=== PATIENT | male | born 1970 | race Two or more races ===

== ENCOUNTER 2021-01-25 19:32 | Emergency (ER) | payer OTHER, SELFPAY ==
[2021-01-25 19:49] VITALS: PULSE 88; RESP 18; TEMP 36.4; O2SAT 96; BMI 40.2
[2021-01-25 20:20] LABS: Appearance Urine CLEAR; Color Urine YELLOW; Glucose Urine UA NEG (NEG); Leukocyte Esterase Urine TRACE (NEG); Nitrite Urine NEG (NEG); Specific Gravity - Urine >= 1.030 (1.005-1.025); UACC Culture Trigger YES; Urine Blood NEG (NEG); Urine Ketones NEG (NEG); Urine Protein NEG (NEG-TRACE)
[2021-01-25 20:29] LABS: RBC Urine 0 /HPF (0); UACC CULT YES
--- NOTE | 2021-01-25 21:33 | ED.MALEGU ---
HPI - Male Genitourinary General Chief complaint: Urogenital-Male Stated complaint: diff urinating, inflamation Time Seen by Provider: 01/25/21 21:03 Source: patient Mode of arrival: ambulatory History of Present Illness HPI Narrative: 50-year-old male with no significant past medical history presenting to the ED complaining of swollen painful foreskin x1 month. Reports difficulty retracting foreskin. Denies dysuria, difficulty urinating/inability to urinate, penile discharge, scrotal pain, hematuria, flank pain, abdominal pain, nausea/vomiting, concern for STI. Related Data Previous Rx's Medication Instructions Recorded clotrimazole 1 % topical cream 1 appl TOPICAL BID 7 Days #45 g 01/25/21 Allergies Allergy/AdvReac Type Severity Reaction Status Date / Time No Known Allergies Allergy Verified 01/25/21 20:56 [No Known Allergies*] Review of Systems Review of Systems: Constitutional: No Fever, No Chills, No Fatigue, No Malaise ENT/Mouth: No Ear Pain, No Nasal Congestion, No Sinus Pain, No Hoarseness, No sore throat Eyes: No Eye Pain, No Swelling, No Redness Cardiovascular: No Chest Pain, No SOB Respiratory: No Cough, No Sputum, No Dyspnea Gastrointestinal: No Nausea, No Vomiting, No Diarrhea, No Constipation, No Abdominal pain Genitourinary: No irregular bleeding, No Dysuria, No Urinary Frequency, No Hematuria,No Urinary Incontinence, No Urgency, No Flank Pain, No Urinary Flow Changes, No Hesitancy, no testicular pain, no penile discharge Musculoskeletal: No joint pain, No Myalgias, No Joint Swelling Skin: + swollen foreskin, No rash Neuro: No Weakness, No Numbness, No Paresthesias, No Loss of Consciousness, No Dizziness, No Headache Yes all other systems are reviewed and are negative [facility] Past Medical History Attestation statement: The following information was validated with the patient. Medical History (Updated 01/26/21 @ 00:02 by Dulce Clayton) No known health problems Social History Social History Advance Directives: No Advance Directives Information Provided: Yes Physical Exam Vital Signs: Vital Signs: Last Vital Signs Temp 97.5 F 01/25/21 19:49 Pulse 88 01/25/21 19:49 Resp 18 01/25/21 19:49 Pulse Ox 96 01/25/21 19:49 Body Mass Index 40.2 Const: General: cooperative and healthy appearing Orientation/consciousness: patient oriented x3 Limitations: no limitations HENMT: Head: Yes normal to inspection Ears: hearing grossly normal bilaterally General nose exam: Normal external nose present Face and sinus: Yes normal facial exam Eyes: General: appearance normal, both eyes and all related structures EOM: EOMs intact bilaterally Neck: Neck: Yes normal visual inspection and Yes no meningeal signs Resp: Effort & Inspection: normal respiratory effort and no respiratory distress Cardio: Rate: regular rate GI: Inspection: Yes normal to inspection Palpation (GI): Soft to palpation, nontender, no guarding and not rigid : Other: + balanitis, swollen foreskin with maceration some clear drainage General: Yes no CVA tenderness Penis: uncircumcised and non retractile foreskin Scrotum: scrotum normal Testes: Testes normal Back/Spine/Pelvis: Back: no CVA tenderness Skin: Rashes: no rashes Wounds: no wounds Neuro: General: patient oriented x3 and no meningeal signs Gait exam (Neuro): Normal gait present Extrem: General: Yes normal to inspection MDM - Male Genitourinary MDM Narrative Medical decision making narrative: 50-year-old male with no significant past medical history presenting to the ED complaining of swollen painful foreskin x1 month. On exam VSS, NAD, abdomen soft/nontender, no CVAT, physical exam consistent with balanitis. Rule out UTI, will obtain STI testing. Plan: UA, CT NG Discussed with patient worrisome signs and symptoms and strict return precautions and needed close follow-up with Urology. Medical Records Attestation: I reviewed the patient's medical records. Lab Data Attestation: I reviewed the patient's lab results. Labs: Lab Results 01/25/21 Range/Units 20:08 Urine Color YELLOW Urine Appearance CLEAR Urine pH 6.0 (5.0-8.0) Ur Specific [place] >= 1.030 H (1.005-1.025) Urine Protein NEG (NEG-TRACE) MG/DL Urine Glucose (UA) NEG (NEG) MG/DL Urine Ketones NEG (NEG) MG/DL Urine Blood NEG (NEG) Urine Nitrite NEG (NEG) Ur Leukocyte Esterase TRACE H (NEG) Urine RBC 0 (0) /HPF Urine WBC 1-4 (0-4) /HPF Ur Squamous Epith Cells NONE /LPF Urine Bacteria NONE /LPF Discharge Plan Discharge Clinical Impression: Balanitis Patient Disposition: Home, Self-Care Instructions: Tory (ED) Additional Instructions: Use clotrimazole cream as prescribed twice daily for 1 week You need to follow-up with a urologist Propped hygiene is very important Retraction of the foreskin with thorough genital cleansing can be both preventive and therapeutic. Overuse of detergents, soaps, perfumes, condoms, and other chemicals (spermicidal agents, petroleum jelly), similar to poor hygiene, can also result in inflammation to the skin of the glans/foreskin. If area begins to worsen, your unable to urinate develop abdominal pain, nausea or vomiting return to the ED Prescriptions: New clotrimazole 1 % cream 1 appl topical BID 7 Days Qty: 45 RF: 0 Referrals: Reuben Jorgensen MD [Physician] - 2 days Interventions: ED Discharge Assessment Last Done: 01/25/21 22:08 Discharge Date/Time: 01/25/21 22:09
[2021-01-26 03:26] LABS: CT PCR NOT DETECTED (Not Detect.); NG PCR NOT DETECTED (Not Detect.)
== END 2021-01-25 22:09 | disposition home or self-care (01) ==
PROVIDERS: Physician Assistant; Emergency Provider Internal Medicine; PCP Internal Medicine
DX: N48.1 Balanitis (principal); R30.0 Dysuria; Z79.899 Other long term (current) drug therapy
CPT/HCPCS: 81001; 87086; 87491; 87591; 99283

== ENCOUNTER → 2021-02-23 11:14 | Outpatient (BNVA) | payer BC, SELFPAY | PROVIDERS: PCP Internal Medicine; Visit Provider Urology ==

== ENCOUNTER 2021-03-15 23:13 | Emergency (ER) | payer OTHER, SELFPAY ==
[2021-03-16 01:02] VITALS: BP 131/77; PULSE 87; RESP 20; TEMP 36.8; O2SAT 95; BMI 36.6
--- NOTE | 2021-03-16 02:30 | ED.GENADULT ---
HPI - General Adult General Chief complaint: Upper Respiratory Symptoms Stated complaint: covid ++ Time Seen by Provider: 03/16/21 02:01 Source: patient Mode of arrival: ambulatory Limitations: no limitations History of Present Illness HPI narrative: Patient comes to the emergency room complaining of feeling weak. Patient denies fever, no chills, diffuse body aches, no chest pain or shortness of breath. Patient states he is known to be COVID positive. Patient came in with the hopes that we can make him feel stronger. Patient states that he has good p.o. intake Related Data Previous Rx's Medication Instructions Recorded clotrimazole 1 % topical cream 1 appl TOPICAL BID 7 Days #45 g 01/25/21 Allergies Allergy/AdvReac Type Severity Reaction Status Date / Time No Known Allergies Allergy Verified 01/25/21 20:56 [No Known Allergies*] Review of Systems Review of Systems: Constitutional : No Weight loss, No Fever, No Chills, No Night Sweats, complaining of Fatigue, complaining of generalized malaise ENT/Mouth : No Hearing loss, No Ear Pain, No Nasal Congestion, No Sinus Pain, No Hoarseness, No sore throat, No Rhinorrhea, No Swallowing Difficulty Eyes: No Eye Pain, No Swelling, No Redness, No Foreign Body, No Discharge, No Vision Changes Cardiovascular : No Chest Pain, No SOB, No Dyspnea on Exertion, No Orthopnea, No Edema, No Palpitations Respiratory : No Cough, No Sputum, No Wheezing, No Smoke Exposure, No Dyspnea Gastrointestinal : No Nausea, No Vomiting, No Diarrhea, No Constipation, No abdominal Pain, No Hematochezia, No Melena Genitourinary : no irregular bleeding, No Dysuria, No Urinary Frequency, No Hematuria, No Urinary Incontinence, No Urgency, No Flank Pain, No Urinary Flow Changes, No Hesitancy Musculoskeletal : No joint pain, No Myalgias, No Joint Swelling Skin : No Skin Lesions, No rash Neuro : No Weakness, No Numbness, No Paresthesias, No Loss of Consciousness, No Dizziness, No Headache Psych : No Anxiety/Panic, No Depression, No SI/HI/AH/VH, No Social Issues, Heme/Lymph: No Bruising, No Bleeding,No Lymphadenopathy Endocrine : No Polyuria, No Polydipsia, No Temperature Intolerance [facility] Past Medical History Medical History No known health problems Social History Social History (Updated 02/23/21 @ 11:44 by Lukasz Bryant) Advance Directives: No Current occupational status: employed 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 Oriented X3. No acute distress. Eyes: Pupils equal, round and reactive to light. ENT: Pharynx normal. Neck: Normal inspection. Neck supple. No lymph nodes noted. No crepitus CVS: Normal heart rate and rhythm. Pulses normal. Normal S1 and S2 Respiratory: No respiratory distress. Breath sounds normal. No Wheezing. No rales Abdomen: Soft and nontender. No rigidity. No distention. good BS x4 Skin: Skin warm and dry. Normal skin color. Normal skin turgor. Extremities: No lower extremity edema. No Lacerations. No Rash Neuro: Oriented X 3. No motor deficit. No sensory deficit. Moving all extermities. No slurred speech. Course Course Course Narrative: I discussed with the patient that fatigue and weakness are known symptoms from any viral infection especially COVID-19. Patient has no respiratory issues at this time, patient states he has ibuprofen and Tylenol at home. Patient instructed to stay well hydrated. And to return to the emergency room if he has any respiratory distress. Discharge Plan Discharge Clinical Impression: Fatigue Patient Disposition: Home, Self-Care Instructions: Fatigue (ED) Additional Instructions: Please follow-up with your primary care physician tomorrow. If you have any worsening or new symptoms, please return to the emergency room or call 911 Prescriptions: No Action clotrimazole 1 % cream 1 appl topical BID 7 Days Qty: 45 RF: 0
--- NOTE | 2021-03-16 02:37 | PC.NURSE ---
pt has covid and reports feeling weak . provider in to assess pt. pt being discharge home with instructions.
[2021-03-16 02:50] VITALS: RESP 20; O2SAT 94
[2021-03-16 02:54] LABS: COVID-19 Test Positive (Negative)
== END 2021-03-16 02:51 | disposition home or self-care (01) ==
PROVIDERS: Emergency Provider Emergency Medicine
DX: U07.1 COVID-19 (principal); M79.10 Myalgia, unspecified site
CPT/HCPCS: 36415; 87635; 99283; 99284

== ENCOUNTER 2021-05-03 05:54 | Day surgery (SDC) | payer OTHER, SELFPAY ==
[2021-04-27 14:00] VITALS: BMI 40.1
--- NOTE | 2021-04-30 12:58 | P.CONAN_ITS ---
Documented by User: Clarita Perkins NP 04/30/21 12:58 HPI - Anesthesia Eval Consult details Narrative: 51yo M for Circumcision PMFSH Active Problems Active Problems: All Active Problems (Updated 03/17/21 @ 00:02 by Dulce Clayton) Phimosis (Acute) Balanitis (Acute) Past Medical History Medical History No known health problems Social History Social History (Updated 02/23/21 @ 11:44 by Lukasz Bryant) Patient Tobacco Use Status: Never used Tobacco Use of substances other than those prescribed or required for medical reasons: No Are you DNR?: No Advance Directives: No Advance Directives Information Provided: Yes Current occupational status: employed 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 Meds Allergies Allergy/AdvReac Type Severity Reaction Status Date / Time No Known Allergies Allergy Verified 01/25/21 20:56 [No Known Allergies*] Exam Exam Date and Time: April 30, 2021 1258 Height,Weight and Vital Signs: Height 5 ft 8 in Weight 119.748 kg Assessment and Plan Assessment Anesthesia Assessment: Chart Reviewed Documented by User: Sophia Goodman MD 05/03/21 07:05 PMFSH Past Medical History Medical History No known health problems Family History Family history of problems with anesthesia: No Surgical History History of Problems with Anesthesia: No Social History Social History (Updated 02/23/21 @ 11:44 by Lukasz Bryant) Patient Tobacco Use Status: Never used Tobacco Use of substances other than those prescribed or required for medical reasons: No Are you DNR?: No Advance Directives: No Advance Directives Information Provided: Yes Current occupational status: employed 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 Meds Allergies Allergy/AdvReac Type Severity Reaction Status Date / Time No Known Allergies Allergy Verified 01/25/21 20:56 [No Known Allergies*] Exam Airway Mallampati Class: II TM Dist: >3cm Neck ROM: Full Heart: rrrr Lungs: cta Assessment and Plan Assessment Anesthesia Assessment: Anesthesia Plan Discussed and Chart Reviewed Final Anesthetic Review Family History of Problems with Anesthesia: No History of Problems with Anesthesia: No NPO: Yes ASA Class: II Final Preanesthetic Review: No Changes in Pt Med Stat, Meds/Allgs Chart Reviewed and Consent Obtained/Reviewed Patient Risk: Intermediate Procedure Risk: Intermediate Anesthetic Plan Anesthetic Plan: GA Disposition: Standard PACU
[2021-05-03] VITALS (7 sets, daily range): BP systolic 96–124; BP diastolic 50–71; PULSE 68–77; RESP 16–17; TEMP 36.3–36.8; O2SAT 94–100
[2021-05-03] MEDS: Lactated Ringers 1,000 ML 100 ML IVCONT (06:45)
--- NOTE | 2021-05-03 07:25 | P.HPSUR_ITS ---
Pre-Procedural Eval Section A Date of Service: 05/03/21 The patient is an INPATIENT: No Changes since office visit: No Cold of Flu in the past 2 weeks, No New Medical Problems, No Changes in Medication and No Patient answered all questions The History & Physical has been completed within 30 days and I have reviewed it.: No Section B Chief Complaint: Phimosis Details of Present Illness: Phimosis Relevant Family History (Specify if Yes): No Relevant Social History: None Present Medications: see Short Stay Collaborative assessment Medical History: No relevant PMH History of Previous Operations: No relevant previous surgery Allergies: Allergies Allergy/AdvReac Type Severity Reaction Status Date / Time No Known Allergies Allergy Verified 01/25/21 20:56 [No Known Allergies*] Review of Systems Sugical H&P ROS: Negative: Constitution, Cardiovascular, Respiratory, Neurological, Psychiatric, Hem-Onc, Allergic/Immunologic, Gastrointestinal, Genitourinary, Musculoskeletal, Integumentary, Endocrine and Eyes/Ears/Nose/Throat Exam Surgical H&P Exam: Normal: HEENT, Normal: Heart, Normal: Lungs, Normal: Extre mities, Normal: Abdomen, Normal: Skin and Normal: Neurological Plan Diagnosis/Plan: Unchanged (Circumcision) I have reviewed the history and physical and performed a pertinent physical examination on my patient. No changes have occurred unless specified.
--- NOTE | 2021-05-03 08:25 | P.OP_ITS ---
Operative Note Operative Note Date of Service: 05/03/21 Narrative: PreOperative Diagnosis: Balanitis and phimosis Post Operative Diagnosis: Balanitis and phimosis Procedure: Circumcision Surgeon: Dr Reuben Jorgensen Anesthesia: General Indications for procedure: Recurring balanitis in inability to withdrawal foreskin of penile glans. Risks and benefits including bleeding, scarring, need for revision surgery been discussed. Procedure: After informed consent was verified the patient was brought to the operating room and placed in a supine position. Anesthesia was administered per protocol. The patient was prepped and draped sterile fashion. Safety pause time-out was performed. Antibiotics have been given. The penis was examined and proximal incision marked that lay just proximal to the resting position of the penile sulcus. This was followed around the circumference of the penis. A penile ring block was performed using 1% lidocai ne with no epinephrine. Approximately 8 cc. The proximal incision was developed with sharp blade running circumferentially around the penis. The skin was to give a 1 cm separation between the foreskin in the remaining penile shaft skin. The foreskin was withdrawn and the penile glans exposed. A a distal incision was made approximately 5 mm proximal to the penile sulcus. At the area of the frenulum care was taken to empty the penile frenulum intact. Using clamps the dorsal skin was elevated. Using Metzenbaum scissors the avascular plane was entered and proximal and distal incision were joined. The bridging skin was elevated and clamped. It was then divided using Bovie. The sleeve of tissue was then removed circumferentially around the penis using cautery in order to minimize bleeding. The shaft was then examined in any bleeding areas were controlled. More local anesthetic was injected into the plane beneath avascular plane to help with postprocedure pain management. The skin edges after they were appropriately examined low reapposed. A 3-0 chromic suture was placed at 12:00 o'clock and 06:00 o'clock positions. Interrupted 3-0 was then placed the 09:00 o'clock and 3 o'clock position. Each quadrant was then filled with 3 sutures using 4-0 chromic. At the completion of the procedure there was adequate hemostasis. The incision was washed and dried. Antibiotic cream was applied to the incision. A Edwardo wrap was applied followed by a Coban dressing. Xeroform gauze had been used to cover antibiotic ointment. He tolerated the procedure well and was extubated in the room and transferred in stable condition to the recovery area. Pathology: Foreskin Drains: none
== END 2021-05-03 09:49 | disposition home or self-care (01) ==
PROVIDERS: PCP Internal Medicine; Visit Provider Urology
PROC: (CPT 54161; principal; 2021-05-03 07:30)
DX: N47.1 Phimosis (principal); N48.1 Balanitis; R39.198 Other difficulties with micturition
CPT/HCPCS: 54161; 88304; J0690; J1100; J2250; J2405; J3010

== ENCOUNTER → 2021-06-03 11:49 | Outpatient (BNVA) | payer OTHER, SELFPAY | PROVIDERS: PCP Internal Medicine; Visit Provider Urology ==

== ENCOUNTER 2024-01-08 08:57 | Emergency (ER) | payer OTHER, SELFPAY ==
[2024-01-08 09:18] VITALS: BP 126/72; PULSE 59; RESP 20; TEMP 36.6; O2SAT 97; BMI 34.9
--- NOTE | 2024-01-08 10:38 | ED_ITS ---
HPI - Burn/Smoke Inhalation General Chief complaint: Burn/Smoke Inhalation Stated complaint: Burn R hand work inj Time Seen by Provider: 01/08/24 10:29 Source: RN notes reviewed and old records reviewed Mode of arrival: ambulatory Limitations: no limitations History of Present Illness HPI Narrative: 53 yo M with no significant past medical history presents to the ED c/o burn to left hand s/p grabbing a hot pipe at work this morning around 07:30 AM. Patient states the burn started to blister within an hour and burn cream was applied prior to arrival to the ED. Vaccinations are not up-to-date. denies injury to other area, numbness, tingling, weakness, drainage MD Complaint: burn Onset (ago): hour(s) Related Data Home Medications ?Medication ?Instructions ?Recorded ?Confirmed atorvastatin 40 mg tablet 40 mg PO DAILY 06/03/21 Previous Rx's ?Medication ?Instructions ?Recorded clotrimazole 1 % topical cream 1 appl topical BID 7 days #45 grams 01/25/21 sulfamethoxazole 400 1 tab PO DAILY #10 tabs 05/03/21 mg-trimethoprim 80 mg tablet (Bactrim) tramadol 50 mg tablet 50 mg PO Q6H PRN pain (scale score 05/03/21 4-6) #14 tabs Allergies Allergy/AdvReac Type Severity Reaction Status Date / Time No Known Allergies Allergy Verified 01/08/24 09:23 [No Known Allergies*] Review of Systems Review of Systems: Yes all other systems are reviewed and are negative Constitutional: Constitutional: Reports as per [facility] Past Medical History Attestation statement: The following information was validated with the patient. 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 Physical Exam Vital Signs: Vital Signs: Last Vital Signs Temp 97.8 F 01/08/24 11:14 Pulse 59 01/08/24 11:14 Resp 20 01/08/24 11:14 BP 126/72 01/08/24 11:14 Pulse Ox 97 01/08/24 11:14 O2 Del Method Room Air 01/08/24 11:14 BMI result Body Mass Index 34.9 Const: General: cooperative, healthy appearing and no acute distress Orientation/consciousness: patient oriented x3 Limitations: no limitations HEENT: Head: Yes normal to inspection and Yes atraumatic Ears: hearing grossly normal bilaterally General nose exam: Normal external nose present Face and sinus: Yes normal facial exam Eyes: General: appearance normal, both eyes and all related structures EOM: EOMs intact bilaterally Neck: Neck: Yes normal visual inspection and Yes no meningeal signs Resp: Effort & Inspection: normal respiratory effort and no respiratory distress Cardio: Rate: regular rate GI: Inspection: Yes normal to inspection Skin: Rashes: no rashes Neuro: General: patient oriented x3, tone normal and no meningeal signs Cranial nerves: Yes CN's II-XII intact bilaterally Gait exam (Neuro): Normal gait present Extrem: Other: Superficial burn appreciated to right hand palmar aspect webspace between 1st and 2nd digit & 3-4th digit palmar MCPs. Not circumferential, no fluid-filled blisters. + mild swelling & tenderness to palpation. No crepitus General: Yes normal to inspection Medications Administered Discontinued Medications Generic Name Dose Route Start Last Admin Trade Name Freq PRN Reason Stop Dose Admin Bacitracin 1 appl 01/08/24 10:53 01/08/24 11:15 Bacitracin Oint 0.9 Gm Packet TOPICAL 01/08/24 10:54 1 appl ONCE ONE Administration Protocol Medical Decision Making Medical Decision Making MDM Narrative: 53 yo M with no significant past medical history presents to the ED c/o burn to left hand s/p grabbing a hot pipe at work this morning around 07:30 AM. On exam VSS, NAD, PE as above with superficial burn as noted. Not circumferential, no fluid-filled blisters. Concern for first-degree burn, no evidence of cellulitis/abscess. Plan for bacitracin ointment applied to areas. Cold compress. Please refer to course for remaining clinical decision making, interpretation of labs/imaging results, and discussions with consultants and/or family members. Results discussed with patient including worrisome signs and symptoms and strict return precautions, and when to return to the emergency department. They verbalized understanding and feel safe for discharge at this time. Differential Diagnosis Differential Diagnoses: The differential diagnosis associated with the presentation includes As above External Record Review External record reviewed: Inpatient record, Office record, Outpatient record, Prior outpatient labs, Prior outpatient radiology, Primary care record and Outside ED record Tests considered The following testing was considered but not selected: As above Prescription Management I considered prescription management with: Pain Medication and Antibiotic Discharge Plan Discharge Clinical Impression: Superficial burn Patient Disposition: Home, Self-Care Instructions: Superficial Burn (DC) Additional Instructions: Please apply topical bacitracin twice daily as directed Keep area dry and clean If blisters form do not pop If area begins to look infected, is red there is pus drainage or you have fever return to the ED Prescriptions: No Action clotrimazole 1 % cream 1 appl topical BID 7 Days Qty: 45 0RF sulfamethoxazole-trimethoprim [Bactrim] 400-80 mg tablet 1 tab PO DAILY Qty: 10 0RF tramadol 50 mg tablet 50 mg PO Q6H PRN (Reason: pain (scale score 4-6)) Qty: 14 0RF atorvastatin 40 mg tablet 40 mg PO DAILY Referrals: Eric Watkins MD [Primary Care Provider] - 5 days Stand Alone Forms: Work/School Release Interventions: ED Discharge Assessment Last Done: 01/08/24 11:14 Discharge Date/Time: 01/08/24 11:14 Print Language: Maltese
[2024-01-08 11:14] VITALS: BP 126/72; PULSE 59; RESP 20; TEMP 36.6; O2SAT 97
[2024-01-08] MEDS: Bacitracin Oint 0.9 GM PACKET 1 APPL TOPICAL (11:15)
== END 2024-01-08 11:14 | disposition home or self-care (01) ==
PROVIDERS: Emergency Provider Emergency Medicine; PCP Internal Medicine
DX: T23.151A Burn of first degree of right palm, initial encounter (principal); X19.XXXA Contact with other heat and hot substances, initial encounter; Y93.89 Activity, other specified; Y92.513 Shop (commercial) as the place of occurrence of the external cause; Y99.0 Civilian activity done for income or pay
CPT/HCPCS: 99282; 99283